=== PATIENT | female | born 1960 | race Caucasian/White ===

== ENCOUNTER 2020-07-08 08:22 | Observation (INO) ==
--- NOTE | 2020-04-28 15:03 | PAT Medication Instructions ---
Medication Instructions Date of Service April 28, 2020 Home Medications albuterol sulfate 1 inh INHALATION QID PRN alprazolam 0.25 mg PO BID PRN escitalopram oxalate 10 mg PO QAM fluticasone furoate [Arnuity Ellipta] 1 inh INHALATION DAILY PRN fluticasone propionate 1 spray INTRANASAL BID PRN levothyroxine [Synthroid] 25 mcg PO QAM loratadine 10 mg PO DAILY PRN meloxicam 7.5 mg PO QAM ASK your surgeon for instructions meloxicam 7.5 mg PO QAM DO NOT take the morning of surgery loratadine 10 mg PO DAILY PRN Take morning of surgery With a small sip of water, OTHERWISE NOTHING TO EAT OR DRINK AFTER MIDNIGHT: albuterol sulfate 1 inh INHALATION QID PRN (use if needed; please bring with you to hospital day of surgery if possible) alprazolam 0.25 mg PO BID PRN (if needed) escitalopram oxalate 10 mg PO QAM fluticasone furoate [Arnuity Ellipta] 1 inh INHALATION DAILY PRN (if needed) fluticasone propionate 1 spray INTRANASAL BID PRN (if needed) levothyroxine [Synthroid] 25 mcg PO QAM Take evening before surgery albuterol sulfate 1 inh INHALATION QID PRN (if needed) alprazolam 0.25 mg PO BID PRN (if needed) fluticasone furoate [Arnuity Ellipta] 1 inh INHALATION DAILY PRN (if needed) fluticasone propionate 1 spray INTRANASAL BID PRN (if needed) loratadine 10 mg PO DAILY PRN (if needed) Other Notes If you have any questions please call us at [phone] or [phone] or [phone] or [phone]
--- NOTE | 2020-05-02 12:52 | Anesthesiology Consultation ---
Date of Service May 02, 2020 Assessment & Plan (1) Encounter for pre-operative examination: Per assessment on 05/02: Travel screen negative. No known COVID-19 positive cont acts or current COVID-19 related symptoms. Surgeon arranging preop COVID testing. Awaiting results. Chart Review Chart Review: Acceptable Risk for Surgery and Patient seen in Pre Admission Testing Teaching & Discussion Pre-Anesthesia Teaching/Discussion Notes: Instructed NPO after midnight before surgery,except medications with 15 cc of water. Medication instructions prov ided according to the PAT guidelines. History Surgery Operation Date: 05/27/20 10:25 Proposed Procedures p Left Tibia Reconstruction Posterior Tibial Tendon with FDL Tendon Transfer, - DO vinayak Ku Medializing Calcaneal Osteotomy, Lateral Column Lengthening with Autograft, - DO vinayak Ku Percutaneous Tendon Achilles Lengthening, Resection Accessory Navicular; - DO vinayak Ku Left Ankle Iliac Crest Autograft [place] - Marky Valenzuela DO Height/Weight Height: 5 ft Weight: 76.4 kg Allergies Allergy/AdvReac Type Severity Reaction Status Date / Time No Known Allergies Allergy Verified 04/28/20 11:02 Medications Home Medications Medication Instructions Recorded Confirmed Last Taken albuterol sulfate 1 inh INHALATION QID PRN 04/28/20 04/28/20 Unknown alprazolam 0.25 mg PO BID PRN 04/28/20 04/28/20 Unknown escitalopram oxalate 10 mg PO QAM 04/28/20 04/28/20 Unknown fluticasone furoate [Arnuity 1 inh INHALATION DAILY PRN 04/28/20 04/28/20 Unknown Ellipta] fluticasone propionate 1 spray INTRANASAL BID PRN 04/28/20 04/28/20 Unknown levothyroxine [Synthroid] 25 mcg PO QAM 04/28/20 04/28/20 Unknown loratadine 10 mg PO DAILY PRN 04/28/20 04/28/20 Unknown meloxicam 7.5 mg PO QAM 04/28/20 04/28/20 Unknown Past Medical History Medical History Anxiety Asthma controlled H/O James thyroiditis Hypothyroidism Obesity Osteoarthritis Sleep apnea CPAP Exercise / Class Metabolic Activity II 4-5 Yardwork/Stairs/Walk up hill Past Family History Family History Other No family history of adverse response to anesthesia Past Surgical History Surgical History History of adenoidectomy History of colonoscopy History of tonsillectomy S/P MARGARET (total abdominal hysterectomy) unilateral salpingectomy-oopherectomy Past Anesthesia History No Hx of Anesthesia Complications and No Family Hx of Anesthesia Complications History of PONV No Hx of PONV and No Hx of Motion Sickness Social History Smoking Status: Never smoker Do You Dip or Chew Tobacco: No Hx Alcohol Use: No Hx Substance Use: No substance use type: does not use Review of Systems Patient denies chest pain, shortness of breath, dyspnea on exertion, joint pain, reflux, cough, wheezing, palpitations. Physical Exam Vital Signs VITALS BP 134/92 P 62 TEMP 98.6 SP02 96%RA RESP 16 PHYSICAL Full neck and c-spine range of motion. Full TMJ range of motion. TMD 3 finger breaths Mallampati Score 2 Dentition: missing molar Lungs: clear throughout to auscultation Cardiac: regular rate and rhythm, no murmurs noted Spine: normal Carotid arteries: negative bruit Extremities: no edema Testing Laboratory Results 05/02/20 13:57 05/02/20 13:57 PT 10.4 Seconds (9.0-12.0) 05/02/20 13:57 INR 1.0 (0.9-1.1) 05/02/20 13:57 APTT 28.9 Seconds (21.0-31.0) 05/02/20 13:57 Urine Color Yellow 05/02/20 Unknown Urine Appearance Clear (Clear) 05/02/20 Unknown Urine pH 7.0 (4.5-7.5) 05/02/20 Unknown Ur Specific [place] 1.008 (1.000-1.030) 05/02/20 Unknown Urine Protein Negative (Negative) 05/02/20 Unknown Urine Glucose (UA) Negative (Negative) 05/02/20 Unknown Urine Ketones Negative (Negative) 05/02/20 Unknown Urine Nitrite Negative (Negative) 05/02/20 Unknown Ur Leukocyte Esterase 1+ (Negative) H 05/02/20 Unknown Urine WBC (Auto) 10-30 /hpf (0-5) H 05/02/20 Unknown Urine RBC (Auto) 0-4 /hpf (0-4) 05/02/20 Unknown U Hyaline Cast (Auto) 0 /lpf (0-5) 05/02/20 Unknown U Epithel Cells (Auto) >30 /lpf (0-5) H 05/02/20 Unknown Urine Bacteria (Auto) Negative (Negative) 05/02/20 Unknown Electrocardiogram Date: 05/02/20 SB at 59bpm. NS TWA. Chest X-Ray Date: 05/02/20 FINDINGS: Cardiac silhouette is upper limits of normal in size. Mediastinal contours are unremarkable. Linear left subsegmental bibasilar densities suggest atelectasis/scarring. There is no pneumothorax, pleural effusion, airspace consolidation or overt pulmonary edema. Degenerative changes of the shoulders and spine. IMPRESSION: No acute process.
--- NOTE | 2020-05-02 14:10 | Electrocardiogram Report ---
Test Reason : Blood Pressure : / mmHG Vent. Rate : 059 BPM Atrial Rate : 059 BPM P-R Int : 184 ms QRS Dur : 092 ms QT Int : 446 ms P-R-T Axes : 019 002 015 degrees QTc Int : 441 ms Sinus bradycardia Nonspecific T wave abnormality Abnormal ECG No previous ECGs available Confirmed by Aaron Villatoro ([id number]) on 05/02/2020 2:10:16 PM Referred By: Marky Valenzuela Confirmed By:Aaron Villatoro
--- NOTE | 2020-05-02 14:24 | XRay Report ---
XR chest Pre-admission PA/Lat HISTORY: 59 years-old Female pat preoperative exam. No acute chest complaints COMPARISON: None TECHNIQUE: PA and lateral views of the chest FINDINGS: Cardiac silhouette is upper limits of normal in size. Mediastinal contours are unremarkable. Linear l eft subsegmental bibasilar densities suggest atelectasis/scarring. There is no pneumothorax, pleural effusion, airspace consolidation or overt pulmonary edema. Degenerative changes of the shoulders and spine. IMPRESSION: No acute process. ACT 112: Negative or not required by law. The above report was generated using voice recognition software. It may contain grammatical, syntax o r spelling errors. Electronically signed by: Aleksandar Pelaez M.D. 05/02/2020 2:23 PM
[2020-05-02 15:49] LABS: Basophils # (auto) 0.05 K/uL (0-0.2); Basophils % (auto) 0.6 %; Eosinophils # (auto) 0.32 K/uL (0-0.5); Hematocrit (blood only) 41.7 % (37-47); Hemoglobin 12.4 g/dL (12.0-16.0); Immature Granulocytes # (auto) 0.01 K/uL (0.00-0.02); Immature Granulocytes % (auto) 0.1 %; Lymphocytes # (auto) 3.21 K/uL (1.2-3.4); Lymphocytes % (auto) 40.6 %; Mean Corpuscular Hemoglobin 23.9 pg (25-34); Mean Corpuscular Hgb Conc 29.7 g/dL (32-36); Mean Corpuscular Volume 80.3 fL (80-100); Mean Platelet Volume 10.8 fL (7.4-10.4); Monocytes # (auto) 0.61 K/uL (0.11-0.59); Monocytes % (auto) 7.7 %; Neutrophils # (auto) 3.71 K/uL (1.4-6.5); Platelet Count 328 K/uL (130-400); RDW Coefficient of Variation 15.1 % (11.5-14.5); RDW Standard Deviation 43.9 fL (36.4-46.3); Red Blood Count 5.19 M/uL (4.2-5.4); White Blood Count 7.91 K/uL (4.8-10.8)
[2020-05-02 15:57] LABS: Appearance Urine Clear (Clear); Bacteria Urine Automated Negative (Negative); Bilirubin Urine Negative (Negative); Blood Urine Negative (Negative); Cast Urine Automated 0 /lpf (0-5); Color Urine Yellow; Epithelial Cell Urine Auto >30 /lpf (0-5); Glucose Urine UA Negative (Negative); Ketones Urine Negative (Negative); Leukocyte Esterase Urine 1+ (Negative); Nitrite Urine Negative (Negative); Protein Urine Negative (Negative); RBC Urine Automated 0-4 /hpf (0-4); Specific Gravity Urine 1.008 (1.000-1.030); Urobilinogen Urine Negative (Negative)
[2020-05-02 16:02] LABS: BUN Creatinine Ratio 15.2 (10-20); Calcium 9.1 mg/dl (8.5-10.1); Creatinine Clr Calc Pharmacy 70.9 ml/min; Est GFR (African American) 95.6; Est GFR (Non-African American) 82.5; Potassium 4.1 mmol/L (3.5-5.1)
[2020-05-02 16:04] LABS: Partial Thromboplastin Time 28.9 Seconds (21.0-31.0); Prothrombin Time 10.4 Seconds (9.0-12.0)
--- NOTE | 2020-05-24 14:02 | History & Physical Report ---
Date of Service May 24, 2020 Assessment & Plan (1) Posterior tibial tendon dysfunction, left: Schedule Left Posterior tibial tendon reconstruction w/ FDL tendon transfer, Medializing calcaneal osteotomy, Lateral column lengthening w/ autograft, percutaneous tendo-achilles lengthening, left iliac crest autograft harvest, resection accessory navicular for 05.27.2020. All potential risks, benefits, complications, alternatives, and rehab have been discussed with the patient and she wishes to proceed. Plan for ASA 81 mg BID x 30 days for post op DVT prophylaxis. (2) Nontraumatic tear of left tibialis posterior tendon: (3) Accessory navicular bone of left foot: (4) Achilles tendon contracture, left: History of Present Illness Chief Complaint: left foot pain Primary Care Provider: Ricky Wright PATIENT REPORTED PAIN STARTED SEPTEMBER 2019 AFTER HAVING FEET ELEVATED, PATIENT FELT A SHARP PAIN WITH NO INJURY. Patient has failed observation, modification of activity, modification of shoe wear, RICE, oral and topical NSAIDs, physician directed home exercises. Patient has not had relief from conservative management. An MRI noted a posterior tibial tendon tear. She is being set up for surgical tx. Allergies Allergy/AdvReac Type Severity Reaction Status Date / Time No Known Allergies Allergy Verified 04/28/20 11:02 Home Medications Home Medications Medication Instructions Recorded Confirmed Type albuterol sulfate 1 inh INHALATION QID PRN 04/28/20 04/28/20 History alprazolam 0.25 mg PO BID PRN 04/28/20 04/28/20 History escitalopram oxalate 10 mg PO QAM 04/28/20 04/28/20 History fluticasone furoate [Arnuity 1 inh INHALATION DAILY PRN 04/28/20 04/28/20 History Ellipta] fluticasone propionate 1 spray INTRANASAL BID PRN 04/28/20 04/28/20 History levothyroxine [Synthroid] 25 mcg PO QAM 04/28/20 04/28/20 History loratadine 10 mg PO DAILY PRN 04/28/20 04/28/20 History meloxicam 7.5 mg PO QAM 04/28/20 04/28/20 History Past Med/Surg History Medical History Anxiety Asthma controlled H/O James thyroiditis Hypothyroidism Obesity Osteoarthritis Sleep apnea CPAP Surgical History History of adenoidectomy History of colonoscopy History of tonsillectomy S/P MARGARET (total abdominal hysterectomy) unilateral salpingectomy-oopherectomy Family History Other No family history of adverse response to anesthesia Social History Smoking Status: Never smoker Second Hand Exposure: Yes (parents smoked); Do You Dip or Chew Tobacco: No; Tobacco Cessation Education Requested by Patient: No Hx Alcohol Use: No Hx Substance Use: No Preferred Language: [place] Communication Ability: Effective Floor Renovator Required: No Beliefs That Will Affect Care: None Current Living Situation: Spouse Current Living Situation Comment: & son Other Information That Helps Us Care for You: No Feels Safe at Home: Yes Safety Concerns: Feels Safe At This Time Assistive Devices: Contacts, CPAP and Glasses Physical Exam Constitutional: well developed and well nourished; no acute distress ENMT: external ear and nose normal, oropharynx normal Neck: trachea midline, no thyromegaly Respiratory: normal respiratory effort, lungs clear to auscultation Cardiovascular: Rate/Rhythm: regular rate and regular rhythm Gastrointestinal (Abdomen): normal bowel sounds, soft, nontender, no hepatosplenomegaly Musculoskeletal: Gait: + antalgic gait (left) Ankle: + deformity (left pes planovalgus), + limited ROM of ankle (left dorsiflexion and inversion) and + joint line tenderness (ankle) (left posterior tibial tendon, sinus tarsi); no skin erythema and no ecchymosis Skin: no rashes, warm and dry Neurologic: normal touch/pain/proprioception Psychiatric: A+Ox3, euthymic affect Speech: normal rate/rhythm/volume of speech Lymphatic: no cervical or axillary lymphadenopathy
--- NOTE | 2020-07-05 08:44 | Anesthesiology Consultation ---
Date of Service July 05, 2020 Assessment & Plan (1) Encounter for pre-operative examination: Per assessment on 06/20: Travel screen negative. No known COVID-19 positive contacts or current COVID-19 related symptoms. Surgeon arranging preop COVID testing (done 07/04, location TBD). Awaiting results. Chart Review Chart Review: Acceptable Risk for Surgery and Patient NOT seen in Pre Admission Testing History Surgery Operation Date: 07/08/20 13:20 Proposed Procedures p Left Tibia Reconstruction Posterior Tibial Tendon with FDL Tendon Transfer, - DO vinayak Ku Medializing Calcaneal Osteotomy, Lateral Column Lengthening with Autograft, - DO vinayak Ku Percutaneous Tendon Achilles Lengthening, Resection Accessory Navicular; - DO vinayak Ku Left Ankle Iliac Crest Autograft [place] - Marky Valenzuela DO Height/Weight Height: 5 ft Weight: 76.4 kg Allergies Allergy/AdvReac Type Severity Reaction Status Date / Time No Known Allergies Allergy Verified 04/28/20 11:02 Medications Home Medications Medication Instructions Recorded Confirmed Last Taken albuterol sulfate 1 inh INHALATION QID PRN 04/28/20 06/20/20 Unknown alprazolam 0.25 mg PO BID PRN 04/28/20 06/20/20 Unknown escitalopram oxalate 10 mg PO QAM 04/28/20 06/20/20 Unknown fluticasone furoate [Arnuity 1 inh INHALATION DAILY PRN 04/28/20 06/20/20 Unknown Ellipta] fluticasone propionate 1 spray INTRANASAL BID PRN 04/28/20 06/20/20 Unknown levothyroxine [Synthroid] 25 mcg PO QAM 04/28/20 06/20/20 Unknown loratadine 10 mg PO DAILY PRN 04/28/20 06/20/20 Unknown meloxicam 7.5 mg PO QAM 04/28/20 06/20/20 Unknown Past Medical History Medical History Anxiety Asthma controlled H/O James thyroiditis Hypothyroidism Obesity Osteoarthritis Sleep apnea CPAP Past Family History Family History Other No family history of adverse response to anesthesia Past Surgical History Surgical History History of adenoidectomy History of colonoscopy History of tonsillectomy S/P MARGARET (total abdominal hysterectomy) unilateral salpingectomy-oopherectomy Social History Smoking Status: Never smoker Do You Dip or Chew Tobacco: No Hx Alcohol Use: No Hx Substance Use: No substance use type: does not use Testing Laboratory Results 05/02/20 13:57 05/02/20 13:57 PT 10.4 Seconds (9.0-12.0) 05/02/20 13:57 INR 1.0 (0.9-1.1) 05/02/20 13:57 APTT 28.9 Seconds (21.0-31.0) 05/02/20 13:57 Urine Color Yellow 05/02/20 Unknown Urine Appearance Clear (Clear) 05/02/20 Unknown Urine pH 7.0 (4.5-7.5) 05/02/20 Unknown Ur Specific [place] 1.008 (1.000-1.030) 05/02/20 Unknown Urine Protein Negative (Negative) 05/02/20 Unknown Urine Glucose (UA) Negative (Negative) 05/02/20 Unknown Urine Ketones Negative (Negative) 05/02/20 Unknown Urine Nitrite Negative (Negative) 05/02/20 Unknown Ur Leukocyte Esterase 1+ (Negative) H 05/02/20 Unknown Urine WBC (Auto) 10-30 /hpf (0-5) H 05/02/20 Unknown Urine RBC (Auto) 0-4 /hpf (0-4) 05/02/20 Unknown U Hyaline Cast (Auto) 0 /lpf (0-5) 05/02/20 Unknown U Epithel Cells (Auto) >30 /lpf (0-5) H 05/02/20 Unknown Urine Bacteria (Auto) Negative (Negative) 05/02/20 Unknown 05/02/20 Unknown Urine Culture - Final Urine,Clean Catch More than three types of organisms present, all moderate counts mixed probable skin lyssa. No further identifications or sensitivities to follow. 07/04/20 WBC 8.09 H/H 12.8/40.8 PLATELETS 274 SODIUM 139 POTASSIUM 3.8 CHLORIDE 108 CO2 25 BUN 13 CREATININE 0.84 GLUCOSE 82 PT 10.7 PTT 29.7 INR 1.0 UA negative Electrocardiogram Date: 05/02/20 SB at 59bpm. NS TWA. Chest X-Ray Date: 05/02/20 FINDINGS: Cardiac silhouette is upper limits of normal in size. Mediastinal contours are unremarkable. Linear left subsegmental bibasilar densities suggest atelectasis/scarring. There is no pneumothorax, pleural effusion, airspace consolidation or overt pulmonary edema. Degenerative changes of the shoulders and spine. IMPRESSION: No acute process.
--- NOTE | 2020-07-07 17:01 | History & Physical Report ---
Date of Service July 07, 2020 Assessment & Plan (1) Posterior tibial tendon dysfunction, left: Schedule Left Posterior tibial tendon reconstruction w/ FDL tendon transfer, Medializing calcaneal osteotomy, Lateral column lengthening w/ autograft, percutaneous tendo-achilles lengthening, left iliac crest autograft harvest, resection accessory navicular for 07.08.2020. All potential risks, benefits, complications, alternatives, and rehab have been discussed with the patient and she wishes to proceed. Plan for ASA 81 mg BID x 30 days for post op DVT prophylaxis. (2) Nontraumatic tear of left tibialis posterior tendon: (3) Accessory navicular bone of left foot: (4) Achilles tendon contracture, left: History of Present Illness Primary Care Provider: Ricky Wright PATIENT REPORTED PAIN STARTED SEPTEMBER 2019 AFTER HAVING FEET ELEVATED, PATIENT FELT A SHARP PAIN WITH NO INJURY. Patient has failed observation, modification of activity, modification of shoe wear, RICE, oral and topical NSAIDs, physician directed home exercises. Patient has not had relief from conservative management. An MRI noted a posterior tibial tendon tear. She is being set up for surgical tx. Allergies Allergy/AdvReac Type Severity Reaction Status Date / Time No Known Allergies Allergy Verified 04/28/20 11:02 Home Medications Medication Instructions Recorded Confirmed Type albuterol sulfate 1 inh INHALATION QID PRN 04/28/20 06/20/20 History alprazolam 0.25 mg PO BID PRN 04/28/20 06/20/20 History escitalopram oxalate 10 mg PO QAM 04/28/20 06/20/20 History fluticasone furoate [Arnuity 1 inh INHALATION DAILY PRN 04/28/20 06/20/20 History Ellipta] fluticasone propionate 1 spray INTRANASAL BID PRN 04/28/20 06/20/20 History levothyroxine [Synthroid] 25 mcg PO QAM 04/28/20 06/20/20 History loratadine 10 mg PO DAILY PRN 04/28/20 06/20/20 History meloxicam 7.5 mg PO QAM 04/28/20 06/20/20 History Past Med/Surg History Medical History Anxiety Asthma controlled H/O James thyroiditis Hypothyroidism Obesity Osteoarthritis Sleep apnea CPAP Surgical History History of adenoidectomy History of colonoscopy History of tonsillectomy S/P MARGARET (total abdominal hysterectomy) unilateral salpingectomy-oopherectomy Family History Other No family history of adverse response to anesthesia Social History Smoking Status: Never smoker Second Hand Exposure: Yes (parents smoked); Hx Alcohol Use: No Hx Substance Use: No Preferred Language: [place]i Mold Tooler Required: No Beliefs That Will Affect Care: None Current Living Situation: Spouse Current Living Situation Comment: & son Feels Safe at Home: Yes Assistive Devices: Contacts, CPAP and Glasses Physical Exam Constitutional: well developed and well nourished; no acute distress ENMT: external ear and nose normal, oropharynx normal Neck: trachea midline, no thyromegaly Respiratory: normal respiratory effort, lungs clear to auscultation Cardiovascular: Rate/Rhythm: regular rate and regular rhythm Gastrointestinal (Abdomen): normal bowel sounds, soft, nontender, no hepatosplenomegaly Musculoskeletal: Gait: + antalgic gait (left) Ankle: + deformity (left pes planovalgus), + limited ROM of ankle (left dorsiflexion and inversion) and + joint line tenderness (ankle) (left posterior tibial tendon, sinus tarsi); no skin erythema and no ecchymosis Skin: no rashes, warm and dry Neurologic: normal touch/pain/proprioception Psychiatric: A+Ox3, euthymic affect Speech: normal rate/rhythm/volume of speech Lymphatic: no cervical or axillary lymphadenopathy
[~2020-07-08 08:22] MED LIST: BUPIVACAINE 0.5 % 5 MG/1 ML MPF 30ML VIAL ONE; EPINEPHrine INJ 1 MG/ML AMP ONE; LR 15ML/HR IV SCH; ceFAZolin 1000MG 1,000 MG/7.5 ML SYR IV SCH
[2020-07-08] MEDS ORDERED: ROPIVACAINE 0.5% 5 MG/ML 30 ML VIAL ONE (10:21)
[2020-07-08] MEDS ORDERED: fentaNYL citrate 100 MCG/2 ML VIAL ONE (10:30)
[2020-07-08] MEDS ORDERED: MIDAZOLAM HCL 1 MG/ML 2ML VIAL ONE (10:30)
--- NOTE | 2020-07-08 10:30 | History & Physical Bridge Note ---
Date of Service July 08, 2020 History & Physical Bridge Note I have examined the patient, reviewed the History & Physical and in the interval since the performance of the History & Physical I have noted the following changes of clinical significance: no changes noted
[2020-07-08] MEDS ORDERED: GELATIN SPONGE SZ 100 ONE (11:02)
[2020-07-08] MEDS ORDERED: THROMBIN FOR SOLN 20000 UNIT KIT ONE (11:02)
[2020-07-08] MEDS ORDERED: BUPIVACAINE 0.25% 30 ML VIAL ONE (11:02)
[2020-07-08] MEDS ORDERED: EPINEPHrine INJ 1 MG/ML AMP ONE (11:02)
[2020-07-08] MEDS ORDERED: BACITRACIN INJ 50,000 UNIT VIAL ONE (11:02)
[2020-07-08] MEDS ORDERED: PROPOFOL IV EMULSION 10 MG/ML 20 ML VIAL IV ONE (12:03)
[2020-07-08] MEDS ORDERED: ePHEDrine sulfate 50 MG/ML SYR ONE ×2 (12:03→12:06)
[2020-07-08] MEDS ORDERED: KETAMINE 50 MG/5 ML SYRINGE ONE (12:27)
[2020-07-08] MEDS ORDERED: MoRPHine SULFATE PF 1 MG/ML 10 ML AMP/VIAL ONE (12:28)
[2020-07-08] MEDS ORDERED: HYDROmorphone INJ 2 MG/ML SYR/VIAL ONE (12:28)
[2020-07-08] MEDS ORDERED: DEXAMETHASONE SOD INJ 4 MG/ML VIAL ONE (12:49)
[2020-07-08] MEDS ORDERED: LIDOCAINE HCL 2% 2 ML VIAL/AMP(20MG/ML) INFIL ONE (12:49)
[2020-07-08] MEDS ORDERED: ONDANSETRON INJ 2 MG/ML 2 ML VIAL ONE (12:49)
[2020-07-08] MEDS ORDERED: FLUMAZENIL 0.1 MG/1 ML 10 ML VIAL IV PRN (14:13)
[2020-07-08] MEDS ORDERED: HYDROmorphone INJ 0.5 MG/0.5 ML SYR IV PRN ×2 (14:13→16:17)
[2020-07-08] MEDS ORDERED: ONDANSETRON INJ 2 MG/ML 2 ML VIAL IV PRN ×2 (14:13→16:17)
[2020-07-08] MEDS ORDERED: ePHEDrine sulfate 50 MG/ML AMP IV PRN (14:13)
[2020-07-08] MEDS ORDERED: PROMETHAZINE HCL 12.5 MG in SODIUM CHLORIDE 0.9% 50 ML IV PRN (14:13)
[2020-07-08] MEDS ORDERED: fentaNYL citrate 100 MCG/2 ML VIAL IV PRN (14:13)
[2020-07-08] MEDS ORDERED: ATROPINE SULFATE 0.1 MG/ML 10ML SYR IV PRN (14:13)
[2020-07-08] MEDS ORDERED: NALOXONE HCL 0.4 MG/1 ML VIAL/CARP IV PRN ×2 (14:13→16:17)
[2020-07-08] MEDS ORDERED: LABETALOL HCL IV 5 MG/ML 20ML IV PRN (14:13)
--- NOTE | 2020-07-08 14:29 | Post Operative Brief Note ---
Immediate Post Op Note v1 Date of Surgery July 08, 2020 Pre & Post Diagnosis Operation Date: 07/08/20 10:20 Pre-Op Diagnosis: (1) Posterior tibial tendon dysfunction, left: (2) Nontraumatic tear of left tibialis posterior tendon: (3) Accessory navicular bone of left foot: (4) Achilles tendon contracture, left: (5) left foot painful pes planovalgus Post-Op Diagnosis: (1) Posterior tibial tendon dysfunction, left: (2) Nontraumatic tear of left tibialis posterior tendon: (3) Accessory navicular bone of left foot: (4) Achilles tendon contracture, left: (5) left foot painful pes planovalgus I identified the patient and participated in the time-out.: Yes Procedure Operation Date: 07/08/20 10:20 Actual Procedures p Left Posterior Tibial Tendon reconstruction with FDL Tendon Transfer,(Left) - DO vinayak Ku Medializing Calcaneal Osteotomy with screw fixation, Lateral Column [place] gthening of the calcaneus with Autograft,(Left) - DO vinayak Ku Percutaneous Tendon Achilles Lengthening; (left)Marky Neri Resection Accessory navicular bone;(Left) - Maryk Valenzuela DO s Left Iliac Crest Autograft [place](Left) - Marky Valenzuela DO Surgeon Marky Valenzuela DO Bias Machine Operator Helper Ricco Tidwell PA-C; Maximino Reyes PA-C Estimated Blood Loss 10 Findings Consistent with Post-Op Diagnosis Specimens None Drains Hemovac Drain Anesthesia Type General Regional Complications none Disposition Accompanied Patient To Recovery: No Disposition: Recovery Room
--- NOTE | 2020-07-08 14:42 | Fluoroscopy Report ---
FL foot LT 2V CLINICAL HISTORY: LT POSTERIOR TIB RECONSTRUCTION COMPARISON STUDY: None. FLUOROSCOPY TIME: 9 seconds. FINDINGS: 2 fluoroscopic spot images of the left hindfoot were submitted. The calcaneal osteotomy/rec onstruction with placement of 2 cannulated screws. The hardware appears intact. Alignment is near-rodney tomic. Skin slime and surgical drains are in place. IMPRESSION: Fluoroscopy provided for calcaneal osteotomy/reconstruction. ACT 112: Negative or not required by law. Electronically signed by: Augustine Ochoa M.D. 07/08/2020 2:41 PM
--- NOTE | 2020-07-08 14:46 | Operative Report (OR) ---
DATE OF OPERATION: 07/08/2020 PREOPERATIVE DIAGNOSES: 1. Left foot posterior tibial tendon tear. 2. Posterior tibial tendon dysfunction grade 2. 3. Painful accessory navicular, left foot. 4. Achilles tendon contracture, left. 5. Left foot painful pes planovalgus deformity. POSTOPERATIVE DIAGNOSES: 1. Left foot posterior tibial tendon tear. 2. Posterior tibial tendon dysfunction grade 2. 3. Painful accessory navicular, left foot. 4. Achilles tendon contracture, left. 5. Left foot painful pes planovalgus deformity. PROCEDURES PERFORMED: 1. Left foot posterior tibial tendon reconstruction with flexor digitorum longus tendon transfer. 2. Medialized and calcaneal osteotomy with screw fixation. 3. Lateral column lengthening of the calcaneus with application of autograft. 4. Percutaneous tendo-Achilles lengthening. 5. Resection of accessory navicular bone, left foot. 6. Left iliac crest autograft harvest. SURGEON: Marky Valenzuela DO. CYBER OPS PLANNER: Ricco Tidwell PA-C and DAVID White who were present for patient positioning, sterile prep and drape, management of retractors and instruments. They were present through the critical portions of the case including wound closure, application of sterile dressing and transport of the patient to recovery. ANESTHESIA: General, regional. SPECIMENS: None. DRAINS: Hemovac x1. COMPLICATIONS: None. BLOOD LOSS: 10 mL. PERTINENT HISTORY: This is a 59-year-old woman who has had painful chronic and worsening left foot pain and deformity. She felt rather a sudden-onset pain in her left foot and noted over the next several months that her foot had begun to flatten its arch, had progressive difficulty with weightbearing and walking and with toe off. She attempted and failed conservative management including physical therapy, use of a brace, anti-inflammatories, rest, modification of activities, observation, physical therapy and steroid injection. She has failed all measures. Radiographs and MRI demonstrated a tear of the posterior tibial tendon with posterior tibial tendon dysfunction grade 2 with lateral impingement. The patient was then scheduled for surgery as indicated. All potential risks, benefits, complications, alternatives, rehab potential for incomplete relief of symptoms, need for further surgery, DVT, PE, , persistent pain, swelling, scarring, weakness, neurovascular injury, wound complications, hardware failure, nonunion, malunion, bone fracture were discussed with the patient. The patient decided to proceed with the procedure as indicated. DESCRIPTION OF PROCEDURE: The patient was taken to the operative suite. The consent was reviewed and surgical site was identified. The patient had undergone a general, regional anesthetic and then transferred to the Operating Room table. Tourniquet was placed high in the left thigh over cast padding. left iliac crest and left lower extremity were then sterilely prepped and draped in usual fashion. The left lower extremity was then elevated and exsanguinated with Esmarch bandage, tourniquet inflated to 350 mmHg. Next, left foot was held in dorsiflexion. 11 blade scalpel was used to perform a three part percutaneous tendo Achilles lengthening and then the small stab incisions were then closed with a skin stapler. Next, a 15 blade scalpel was used to make an incision in oblique fashion on the lateral aspect of the left calcaneus. The incision was deepened to subcutaneous tissue. Meticulous hemostasis with electrocautery. Full thickness flaps were developed. Next, periosteum was elevated with small periosteal elevator. Hohmann retractors were placed and a sagittal saw was used to perform the osteotomy in the posterior aspect of the calcaneus. Tuberosity was then shifted medially and then stabilized with a guide pin from the 7.3 mm cannulated screw set under fluoroscopic control. Next, a short thread 7.3 mm cannulated screw of appropriate length was then placed over the guide pin and then used to compress the osteotomy under fluoroscopic control. Next, the guide pin was removed. The wound was irrigated with sterile Normal Saline and the dermis was closed using buried 3-0 Vicryl sutures and the skin was closed using 4-0 Nylon. Next, a 15 blade scalpel incision was made over the anterior process of the calcaneus and lateral calcaneus, the incision deepened through subcutaneous tissue, meticulous hemostasis with electrocautery. The extensor digitorum brevis was identified, incised and then elevated both superiorly and inferiorly. Peroneal tendon sheath was elevated and Hohmann retractors were placed in the sinus tarsi and then the inferior aspect of the calcaneus. A sagittal saw was used to make an osteotomy approximately 1.5 cm proximal to the calcaneal cuboid joint. Smooth osteotomes were placed into the osteotomies to open the osteotomy site and then a cervical lamina water regulator and valve repairer was placed in the opening. The opening of appropriate width was then measured and the cervical lamina water regulator and valve repairer was then removed from the osteotomy and a moist lap was placed over the foot. Next, after injection of the left iliac crest with approximately 15 cc of 0.5% Marcaine with Epinephrine a 15 blade scalpel incision was made over the iliac crest approximately 1 cm proximal to the ASIS. This was deepened to subcutaneous tissue with electrocautery down to the level of the fascia. Fascia was incised in line with the skin incision and then the iliac crest was clearly visualized, soft tissue and fascia was elevated medially and laterally. Small Watson retractors were placed in the inner and outer table of the iliac crest. It was irrigated with sterile Normal Saline. Appropriate length of bone wedge was measured and marked with electrocautery and then a sagittal saw was used to resect the appropriate width trapezoidal tricortical graft from the pelvis. Next, after irrigation and suction the graft was then placed on the back table and a small amount of cancellous graft was excised from the iliac crest. The wound was then finally irrigated with Sterile Normal Saline. The defect in the iliac crest was then packed with Gelfoam and Thrombin. This was then closed with the fascia overlying the iliac crest with #1 Vicryl sutures. Next, this was injected with 1 cc of Duramorph and 5 cc of 0.5% Marcaine with Epinephrine. The dermis was closed using buried interrupted 2-0 Vicryl sutures and the skin was closed using skin slime. Approximately 5 more cc of 0.5% Marcaine with Epinephrine was injected. No oozing or bleeding was encountered and a sterile compressive dry dressing was applied overwrapped with an OpSite. Next, the graft was then placed in the lateral osteotomy of the foot to lengthen the lateral column using a cervical lamina water regulator and valve repairer to span the osteotomy. After the graft was tamped in place with a bone tamp and mallet the cervical lamina water regulator and valve repairer was removed. Next, the adjacent bone graft obtained from the iliac crest was then packed around the tricortical graft and then the graft was then stabilized with a single fully threaded 4.0 mm small fragment screw placed under lag technique compressing the graft in place. Next, the 2-0 Vicryl suture was used to close the extensor digitorum brevis and the dermis was closed using buried interrupted 3-0 Vicryl. Skin was closed using 4-0 Nylon sutures. Next, a 15 blade scalpel was used to make a long curvilinear incision along the medial aspect of the hind foot overlying the posterior tibial tendon. The incision was deepened to subcutaneous tissue. Meticulous hemostasis achieved with electrocautery. The incision was extended to the first metatarsal head. Next, after incision of the laciniate ligament the flexor retinaculum was encountered. This was incised in line with skin incision overlying the posterior tibial tendon. The posterior tibial tendon was clearly visualized. Tenotomy scissors were then used to complete the release of the flexor retinaculum and the posterior tibial tendon was then elevated sharply with combination of electrocautery and 15 blade scalpel from its insertion on the navicular. The symptomatic accessory navicular noted on the MRI was then sharply resected with a 15 blade scalpel. The damaged portion of the posterior tibial tendon at its distal aspect was then resected with a 15 blade and whipstitched with #2 ultra braid suture in the distal aspect of the posterior tibial tendon. Next, dissection was continued in the mid foot in the interval between the first metatarsal and the abductor hallucis. A Weitlaner retractor was placed in the wound and then after careful dissection the master knot of Jimmie was released and the flexor digitorum longus and flexor hallucis longus were clearly visualized distally. Tenodesis was performed with interrupted 0 Ethibond suture with toes held in neutral alignment in line with the metatarsals. Next, a whip stitch was placed in the distal aspect of the FDL tendon and then the FDL was then released distally to allow it to be retracted proximally posterior to the medial malleolus after a small cut was made in the FDL sheath posterior to the medial malleolus. After the tendon was withdrawn posteriorly, the soft tissues were elevated from the medial navicular and a 4.5 mm drill hole was made in the medial navicular. A [place] suture passer was used to transfer the tendon from the plantar to the dorsal aspect of the navicular. It was then sutured back down to itself using a sharp tendon passer and a Pulvertaft weave technique with #2 fiber wire suture. Several passes were made and then this was then incorporated into the posterior tibial tendon. Next, free needle was used to tie the ends of the posterior tibial tendon and FDL tendon into the adjacent tendons. Sutures were then tied and cut. The wound was irrigated with Sterile Normal Saline. Deep drain was placed, a #10 Urdu single Hemovac drain medially and then the flexor sheath was closed using interrupted 2-0 Vicryl sutures. The interval between the first metatarsal and the abductors were closed using interrupted 2-0 Vicryl sutures. The dermis was closed using buried interrupted 3-0 Vicryl suture and skin closed with 4-0 Nylon. A sterile compressive Ricky Gonzalez plaster splint was applied and wrapped with an Tay wrap with the foot held in slight equinus and inversion. The tourniquet was released, patient awakened and taken to recovery in stable condition. I attest to the content of the Intraoperative Record and any orders documented therein. Any exceptions are noted below. LIOR
--- NOTE | 2020-07-08 15:34 | Anesthesiology Progress Note ---
Date of Service July 08, 2020 Anesthesia Post Procedure Vital Signs Vital Signs: Temp Pulse Pulse Resp BP BP Pulse Ox 07/08/20 15:25 105 H 12 138/91 95 07/08/20 15:15 101 H 13 108/79 95 07/08/20 15:05 90 12 128/73 93 07/08/20 14:55 84 12 128/84 96 07/08/20 14:45 81 12 128/80 96 07/08/20 14:39 36.5 C 85 12 100/84 97 07/08/20 09:26 66 20 149/97 H 98 07/08/20 08:41 36.7 C 67 20 140/94 99 Transfer of Care Handoff Completed per policy Notes Mental Status: alert / awake / arousable Patient Amnestic to Procedure: Yes Nausea / Vomiting: adequately controlled Pain: adequately controlled Airway Patency, RR, SpO2: stable & adequate BP & HR: stable & adequate Hydration State: stable & adequate Anesthetic Complications: no major complications apparent
[2020-07-08] MEDS: SODIUM CHLORIDE 0.9% 1000ML 1,000 ML IV SCH (16:10)
[2020-07-08] MEDS ORDERED: MAGNESIUM HYDROXIDE SUSP 30 ML UDC PO PRN (16:17)
[2020-07-08] MEDS ORDERED: diphenhydrAMINE Capsule 25 MG CAP PO PRN (16:17)
[2020-07-08] MEDS ORDERED: METOCLOPRAMIDE HCL INJ 5 MG/ML 2 ML VIAL IV PRN (16:17)
[2020-07-08] MEDS ORDERED: bisacodyL 10 MG SUPP PR PRN (16:17)
[2020-07-08] MEDS ORDERED: LORATADINE 10 MG TAB PO PRN (16:17)
[2020-07-08] MEDS ORDERED: oxyCODONE HCL IR 5 MG TAB (IMMEDIATE RELEASE) PO PRN (16:30)
[2020-07-08] MEDS ORDERED: FLUTICASONE FUROATE 100MCG 14 PUFFS/INHALER INH PRN (17:00)
[2020-07-08] MEDS ORDERED: NO NSAIDS SCH (17:00)
[2020-07-08] MEDS: ACETAMINOPHEN 500 MG TAB PO SCH (17:45)
[2020-07-08] MEDS ORDERED: ALBUTEROL HFA 8 GM INHALER INH PRN (19:00)
[2020-07-08] MEDS ORDERED: ALPRAZolam 0.25 MG TABLET PO PRN (21:00)
[2020-07-08] MEDS ORDERED: SENNA 8.6 MG TAB PO SCH (21:00)
[2020-07-08] MEDS ORDERED: FLUTICASONE PROPIONATE NA SPR 16 GM BTL PRN (21:00)
[2020-07-08] MEDS: ASPIRIN 81 MG ECTAB PO SCH (21:27)
[2020-07-08] MEDS: DOCUSATE SODIUM 100 MG CAP PO SCH (21:27)
[2020-07-08] MEDS: ceFAZolin 2000MG 2,000 MG/15 ML SYR IV SCH (21:27)
[2020-07-09] MEDS: ACETAMINOPHEN 500 MG TAB PO SCH ×2 (00:26→08:30)
[2020-07-09] MEDS: SODIUM CHLORIDE 0.9% 1000ML 1,000 ML IV SCH (02:22)
[2020-07-09] MEDS: ceFAZolin 2000MG 2,000 MG/15 ML SYR IV SCH (03:45)
[2020-07-09] MEDS ORDERED: LEVOTHYROXINE SODIUM 25 MCG TABLET PO SCH (06:30)
[2020-07-09 07:27] LABS: Hematocrit (blood only) 36.5 % (37-47); Hemoglobin 11.4 g/dL (12.0-16.0); Mean Corpuscular Hemoglobin 25.9 pg (25-34); Mean Corpuscular Hgb Conc 31.2 g/dL (32-36); Mean Platelet Volume 10.4 fL (7.4-10.4); Platelet Count 248 K/uL (130-400); RDW Coefficient of Variation 15.4 % (11.5-14.5); White Blood Count 11.37 K/uL (4.8-10.8)
[2020-07-09 07:44] LABS: BUN Creatinine Ratio 13.5 (10-20); Calcium 8.8 mg/dl (8.5-10.1); Creatinine Clr Calc Pharmacy 67.1 ml/min; Est GFR (African American) 90.1; Est GFR (Non-African American) 77.7; Potassium 3.9 mmol/L (3.5-5.1)
[2020-07-09] MEDS: DOCUSATE SODIUM 100 MG CAP PO SCH (08:29)
[2020-07-09] MEDS: ASPIRIN 81 MG ECTAB PO SCH (08:29)
[2020-07-09] MEDS ORDERED: MULTIVITAMIN TAB PO SCH (09:00)
[2020-07-09] MEDS ORDERED: ESCITALOPRAM OXALATE 10 MG TAB PO SCH (09:00)
--- NOTE | 2020-07-09 09:26 | Orthopedic Progress Note ---
Date of Service July 09, 2020 Assessment & Plan (1) Posterior tibial tendon dysfunction, left: 1. Left foot posterior tibial tendon reconstruction with flexor digitorum longus tendon transfer. 2. Medialized and calcaneal osteotomy with screw fixation. 3. Lateral column lengthening of the calcaneus with application of autograft. 4. Percutaneous tendo-Achilles lengthening. 5. Resection of accessory navicular bone, left foot. 6. Left iliac crest autograft harvest. DVT prophylaxis- ASA, TEDs Plan for discharge home today. Admission and Anticipated Discharge Date Admission Date: July 08, 2020 Subjective POD #1 Doing well, resting in bed. No complaints. Denies CP/SOB, dizziness/lightheadedness, N/V Physical Exam Physical Exam: Toes mobile, NVI. Dressing in place. Hemovac drain in place. Results & Data ([facility]) Vital Signs (Past 12 Hours) Vital Signs Temp Pulse Resp BP Pulse Ox 07/09/20 07:41 36.8 C 62 18 124/77 96 07/09/20 02:53 36.6 C 62 16 113/71 96 07/08/20 23:24 36.6 C 74 16 113/72 93
--- NOTE | 2020-07-15 09:01 | Discharge Summary ---
Date of Service July 15, 2020 Admission HPI Per Admitting Provider PATIENT REPORTED PAIN STARTED SEPTEMBER 2019 AFTER HAVING FEET ELEVATED, PATIENT FELT A SHARP PAIN WITH NO INJURY. Patient has failed observation, modification of activity, modification of shoe wear, RICE, oral and topical NSAIDs, physician directed home exercises. Patient has not had relief from conservative management. An MRI noted a posterior tibial tendon tear. She is being set up for surgical tx. Principal Diagnosis left posterior tibial tendon tear and dysfunction Discharge Exam Constitutional well developed and well nourished; no acute distress ENMT external ear and nose normal, oropharynx normal Neck trachea midline, no thyromegaly Respiratory normal respiratory effort, lungs clear to auscultation Cardiovascular Rate/Rhythm: regular rate and regular rhythm Gastrointestinal (Abdomen) normal bowel sounds, soft, nontender, no hepatosplenomegaly Musculoskeletal Gait: + antalgic gait (left) Ankle: + surgical incision (left ankle splint C/D/I); no skin erythema and no e cchymosis Skin no rashes, warm and dry Neurologic normal touch/pain/proprioception Psychiatric A+Ox3, euthymic affect Speech: normal rate/rhythm/volume of speech Lymphatic no cervical or axillary lymphadenopathy Discharge Data Allergies Allergy/AdvReac Type Severity Reaction Status Date / Time No Known Allergies Allergy Verified 07/08/20 08:46 Consultations 07/08/20 16:17 Consult Case Management - Discharge Planning Routine Procedures Performed Operation Date: 07/08/20 10:20 Actual Procedures p Left Tibia Reconstruction Posterior Tibial Tendon with FDL Tendon Transfer,(Left) - DO vinayak Ku Medializing Calcaneal Osteotomy, Lateral Column Lengthening with Autograft,(Left) - DO vinayak Ku Percutaneous Tendon Achilles Lengthening, Resection Accessory Navicular;(Left) - DO vinayak Ku Left Ankle Iliac Crest Autograft [place](Left) - Marky Valenzuela DO Ordered Studies 05/27/20 05:00 US - OR guided needle placemen Routine 07/08/20 05:00 US - OR guided needle placemen Routine 07/08/20 13:20 FL fluoroscopy <1hr Routine FL foot LT 2V Routine Hospital Course (1) Posterior tibial tendon dysfunction, left: The patient was admitted and underwent the noted procedure. On POD #1, she was doing well with pain control and maintaining NWB status on the LLE. She participated in PT. She was then discharged home later that day. 1. Left foot posterior tibial tendon reconstruction with flexor digitorum longus tendon transfer. 2. Medialized and calcaneal osteotomy with screw fixation. 3. Lateral column lengthening of the calcaneus with application of autograft. 4. Percutaneous tendo-Achilles lengthening. 5. Resection of accessory navicular bone, left foot. 6. Left iliac crest autograft harvest. DVT prophylaxis- ASA, TEDs Plan for discharge home today. Total Time Total Time Spent Total Time Spent (In Minutes): 30 Total Time Includes: Examination of the Patient, Discharge Planning and Medication Reconciliation Discharge Plan Discharge Items Patient Disposition: Home - Self-Care Reason For Visit: Left Posterior Tibial Tear, Accessory Navicular Jas Discharge Diagnosis: Left Posterior Tibial Tear Activity: Per Instructions section Weightbearing Comment: with walker Non-emergency contact: Surgeon Call non-emergency contact if: your pain is not controlled, your temperature is above 101.5, your wound has increased redness and your wound has increased drainage Follow-up/Referrals: Ricky Wright D.O. [Primary Care Provider] - Diet: Regular Addtl Attending Provider Instructions: You can change your dressing on your left hip in 48 hours. Then change it daily for 1 week, then every other day until seen in the office. ACTIVITY RECOMMENDATIONS: Limitations: No weight bearing to affected limb at all times. SPECIAL CARE INSTRUCTIONS: * Some drainage onto the dressing is normal and is no cause for alarm. * Some swelling is natural especially after walking. * When resting, keep your foot elevated above the level of your heart. * Call [facility] if you notice: -Increased drainage -Fever over 101 degrees F -Severe constant pain BANDAGE: * Leave bandage/cast in place unless otherwise directed. * Keep bandage/cast dry at all times. * Hip wound. DERMABOND Prineo- This is a mesh tape dressing that is covered with glue. It should remain in place until the incision is properly healed, usually 10-14 days. This dressing is designed to naturally slough off. You may trim the excess mesh tape as it peels off. Incision may be briefly wet in a shower. Dry immediately by blotting with a clean, dry towel. Do not bath or swim until instructed by your doctor. Do not scratch, rub, or pick at the dressing. Do not apply any topical ointments or lotions until dressing is completely removed and/or instructed by your doctor. There may be a small piece of suture material at one end of your incision. Do not pull or trim this. If it is bothersome or catching on clothing, you may cover it with a band-aid. FOLLOW UP VISIT WITH DR. VALENZUELA If appointment is not already scheduled: Please call [facility] after you get home today to schedule a follow-up appointment for [address] Valenzuela at . Pending Studies at Discharge: No Stand-Alone Forms: My [facility] [employer], Opioid Pain Management, Smoking Cessation Medications and DC Order Prescriptions: New multivitamin [Daily-[place]] Tablet 1 tab PO QAM 30 Days Qty: 30 RF: 0 aspirin 81 mg Tablet,Delayed Release (Dr/Ec) 81 mg PO BID 30 Days Qty: 60 RF: 0 acetaminophen 500 mg Tablet 1,000 mg PO Q8H 30 Days Qty: 180 RF: 0 docusate sodium 100 mg Capsule 100 mg PO BID PRN (Reason: Constipation) 30 Days Qty: 30 RF: 0 oxycodone 5 mg Tablet 5 - 10 mg PO Q4H PRN (Reason: pain) Qty: 30 RF: 0 No Nsaids 1 dose Not Applicable UD 30 Days RF: 0 Continued levothyroxine [Synthroid] 25 mcg Tablet 25 mcg PO QAM RF: 0 albuterol sulfate 90 mcg/actuation Hfa Aerosol Inhaler 1 inh INHALATION QID PRN (Reason: sob) RF: 0 fluticasone propionate 50 mcg/actuation [place],Suspension 1 spray INTRANASAL BID PRN (Reason: seasonal congestion) RF: 0 loratadine 10 mg Tablet 10 mg PO DAILY PRN (Reason: seasonal allergies) RF: 0 escitalopram oxalate 10 mg Tablet 10 mg PO QAM RF: 0 Arnuity Ellipta 100 mcg/actuation Blister With Device 1 inh INHALATION DAILY PRN (Reason: sob) RF: 0 alprazolam 0.25 mg Tablet 0.25 mg PO BID PRN (Reason: Anxiety) RF: 0 Discontinued meloxicam 7.5 mg Tablet 7.5 mg PO QAM RF: 0 Discharge Orders: Discharge Order (Routine); Ordered 07/09/20 Ordered By: Emilie Weinstein/Other Patient Handouts: DVT Post Op Prevention Admission Data Admit Date/Time: 07/08/20 14:54 Attending Provider: Marky Valenzuela Admit Provider: Marky Valenzuela Primary Care Provider: Ricky Wright Other Interventions: Discharge Summary Assessment (RN) Last Done: 07/09/20 11:09
== END 2020-07-09 12:16 | disposition home or self-care (01) ==
LOC: ASU 08:22 → 3E 14:54 → INTOOBSV 14:54